=== PATIENT | female | born 2000 | race American Indian/Alaskan Native ===

== ENCOUNTER 2019-08-25 19:00 | Emergency (ER) | payer MEDICAID, OTHER ==
--- NOTE | 2019-08-25 20:41 | Emergency Department Report ---
ED Female HPI - General Chief complaint: Abdominal Pain Stated complaint: /PAIN 6 WKS Time Seen by Provider: 08/25/19 20:00 Source: patient Mode of arrival: Ambulatory Limitations: No Limitations - History of Present Illness Initial comments: This is a 19-year-old -[place]aro[place] female who presents to the emergency room with abdominal pain, vaginal bleeding, nausea or vomiting for 2-3 days. Patient states she is 6 weeks and not followed by an [facility]. Her last menstrual period was 07/08/2019, A0. She reports hematuria and urinary frequency. Denies vaginal discharge, back pain, chest pain, dizziness, or weakness. MD Complaint: vaginal bleeding, pelvic pain Onset/Timin -: days(s) Location: suprapubic Radiation: non-radiating Severity: mild Severity scale (0 -10): 3 Quality: cramping Consistency: constant Improves with: none Worsens with: none Are you Now?: Yes Last Menstrual Period: 07/08/19 EDC: 04/13/20 Associated Symptoms: vaginal bleeding, abdominal pain, nausea/vomiting, hematuria. denies: fever/chills, headaches, loss of appetite, dysuria, rash, seizure, shortness of breath, syncope, weakness - Related Data Sexually active: Yes : 2 Para: 1 A: 0 Previous Rx's Medication Instructions Recorded Last Taken Type Ondansetron [Zofran Odt] 4 mg PO Q8HR PRN #20 tab.rapdis 08/26/19 Unknown Rx cephALEXin [Keflex] 500 mg PO BID #14 capsule 08/26/19 Unknown Rx Allergies Allergy/AdvReac Type Severity Reaction Status Date / Time No Known Allergies Allergy Unverified 08/25/19 19:05 ED Review of Systems ROS: Stated complaint: /PAIN 6 WKS Other details as noted in HPI Constitutional: denies: chills, fever Respiratory: denies: cough, shortness of breath, wheezing Cardiovascular: denies: chest pain, palpitations Gastrointestinal: abdominal pain, nausea, vomiting. denies: diarrhea Genitourinary: frequency, hematuria. denies: urgency, dysuria, discharge Musculoskeletal: denies: back pain, joint swelling, arthralgia Skin: denies: rash, lesions Neurological: denies: headache, weakness, paresthesias Psychiatric: denies: anxiety, depression ED Past Medical Hx - Past Medical History Previous Medical History?: No - Surgical History Past Surgical History?: No - Social History Smoking Status: Never Smoker Substance Use Type: None - Medications Home Medications: Home Medications Medication Instructions Recorded Confirmed Last Taken Type Ondansetron [Zofran Odt] 4 mg PO Q8HR PRN #20 tab.rapdis 08/26/19 Unknown Rx cephALEXin [Keflex] 500 mg PO BID #14 capsule 08/26/19 Unknown Rx ED Physical Exam - General Limitations: No Limitations General appearance: alert, in no apparent distress - Respiratory Respiratory exam: Present: normal lung sounds bilaterally. Absent: respiratory distress - Cardiovascular Cardiovascular Exam: Present: regular rate, normal rhythm. Absent: systolic murmur, diastolic murmur, rubs, gallop - GI/Abdominal GI/Abdominal exam: Present: soft, tenderness (suprapubic), normal bowel sounds. Absent: distended, guarding, rebound, rigid, organomegaly - Back Exam Back exam: Absent: CVA tenderness (R), CVA tenderness (L) - Neurological Exam Neurological exam: Present: alert, oriented X3 - Psychiatric Psychiatric exam: Present: normal affect, normal mood - Skin Skin exam: Present: warm, dry, intact, normal color. Absent: rash ED Course Vital Signs 08/25/19 19:51 Temperature 98.0 F Pulse Rate 72 Respiratory 14 Rate Blood Pressure 116/58 O2 Sat by Pulse 99 Oximetry ED Medical Decision Making - Lab Data Result diagrams: 08/25/19 21:53 Lab Results 08/25/19 08/25/19 08/25/19 Range/Units 21:53 21:53 21:53 WBC 11.4 H (4.5-11.0) K/mm3 RBC 3.54 L (3.65-5.03) M/mm3 Hgb 11.5 (10.1-14.3) gm/dl Hct 31.8 (30.3-42.9) % MCV 90 (79-97) fl MCH 32 (28-32) pg MCHC 36 H (30-34) % RDW 12.9 L (13.2-15.2) % Plt Count 221 (140-440) K/mm3 Lymph % (Auto) 27.4 (13.4-35.0) % Garvin % (Auto) 5.9 (0.0-7.3) % Eos % (Auto) 0.3 (0.0-4.3) % Baso % (Auto) 0.8 (0.0-1.8) % Lymph # 3.1 (1.2-5.4) K/mm3 Garvin # 0.7 (0.0-0.8) K/mm3 Eos # 0.0 (0.0-0.4) K/mm3 Baso # 0.1 (0.0-0.1) K/mm3 Seg Neutrophils % 65.6 (40.0-70.0) % Seg Neutrophils # 7.5 (1.8-7.7) K/mm3 HCG, Qual Positive (Negative) HCG, Quant 72093 H (0-4) mIU/mL Blood Type 08/25/19 Range/Units 21:53 WBC (4.5-11.0) K/mm3 RBC (3.65-5.03) M/mm3 Hgb (10.1-14.3) gm/dl Hct (30.3-42.9) % MCV (79-97) fl MCH (28-32) pg MCHC (30-34) % RDW (13.2-15.2) % Plt Count (140-440) K/mm3 Lymph % (Auto) (13.4-35.0) % Garvin % (Auto) (0.0-7.3) % Eos % (Auto) (0.0-4.3) % Baso % (Auto) (0.0-1.8) % Lymph # (1.2-5.4) K/mm3 Garvin # (0.0-0.8) K/mm3 Eos # (0.0-0.4) K/mm3 Baso # (0.0-0.1) K/mm3 Seg Neutrophils % (40.0-70.0) % Seg Neutrophils # (1.8-7.7) K/mm3 HCG, Qual (Negative) HCG, Quant (0-4) mIU/mL Blood Type O NEGATIVE Lab Results 08/25/19 08/25/19 08/25/19 Range/Units 21:53 21:53 21:53 WBC 11.4 H (4.5-11.0) K/mm3 RBC 3.54 L (3.65-5.03) M/mm3 Hgb 11.5 (10.1-14.3) gm/dl Hct 31.8 (30.3-42.9) % MCV 90 (79-97) fl MCH 32 (28-32) pg MCHC 36 H (30-34) % RDW 12.9 L (13.2-15.2) % Plt Count 221 (140-440) K/mm3 Lymph % (Auto) 27.4 (13.4-35.0) % Garvin % (Auto) 5.9 (0.0-7.3) % Eos % (Auto) 0.3 (0.0-4.3) % Baso % (Auto) 0.8 (0.0-1.8) % Lymph # 3.1 (1.2-5.4) K/mm3 Garvin # 0.7 (0.0-0.8) K/mm3 Eos # 0.0 (0.0-0.4) K/mm3 Baso # 0.1 (0.0-0.1) K/mm3 Seg Neutrophils % 65.6 (40.0-70.0) % Seg Neutrophils # 7.5 (1.8-7.7) K/mm3 HCG, Qual Positive (Negative) HCG, Quant 01293 H (0-4) mIU/mL Urine Color (Yellow) Urine Turbidity (Clear) Urine pH (5.0-7.0) Ur Specific [place] (1.003-1.030) Urine Protein (Negative) mg/dL Urine Glucose (UA) (Negative) mg/dL Urine Ketones (Negative) mg/dL Urine Blood (Negative) Urine Nitrite (Negative) Urine Bilirubin (Negative) Urine Urobilinogen (<2.0) mg/dL Ur Leukocyte Esterase (Negative) Urine WBC (Auto) (0.0-6.0) /HPF Urine RBC (Auto) (0.0-6.0) /HPF U Epithel Cells (Auto) (0-13.0) /HPF Amorphous Crystals Urine Mucus /HPF Blood Type 08/25/19 08/25/19 Range/Units 21:53 Unknown WBC (4.5-11.0) K/mm3 RBC (3.65-5.03) M/mm3 Hgb (10.1-14.3) gm/dl Hct (30.3-42.9) % MCV (79-97) fl MCH (28-32) pg MCHC (30-34) % RDW (13.2-15.2) % Plt Count (140-440) K/mm3 Lymph % (Auto) (13.4-35.0) % Garvin % (Auto) (0.0-7.3) % Eos % (Auto) (0.0-4.3) % Baso % (Auto) (0.0-1.8) % Lymph # (1.2-5.4) K/mm3 Garvin # (0.0-0.8) K/mm3 Eos # (0.0-0.4) K/mm3 Baso # (0.0-0.1) K/mm3 Seg Neutrophils % (40.0-70.0) % Seg Neutrophils # (1.8-7.7) K/mm3 HCG, Qual (Negative) HCG, Quant (0-4) mIU/mL Urine Color Yellow (Yellow) Urine Turbidity Clear (Clear) Urine pH 7.0 (5.0-7.0) Ur Specific [place] 1.013 (1.003-1.030) Urine Protein <15 mg/dl (Negative) mg/dL Urine Glucose (UA) Neg (Negative) mg/dL Urine Ketones Tr (Negative) mg/dL Urine Blood Neg (Negative) Urine Nitrite Neg (Negative) Urine Bilirubin Neg (Negative) Urine Urobilinogen 2.0 (<2.0) mg/dL Ur Leukocyte Esterase Mod (Negative) Urine WBC (Auto) 78.0 H (0.0-6.0) /HPF Urine RBC (Auto) 8.0 (0.0-6.0) /HPF U Epithel Cells (Auto) 1.0 (0-13.0) /HPF Amorphous Crystals Few Urine Mucus Few /HPF Blood Type O NEGATIVE - Radiology Data Radiology results: report reviewed Transabdominal and transvaginal OB pelvic ultrasound INDICATION / CLINICAL INFORMATION: Abdominal pain and bleeding. COMPARISON: None available. FINDINGS: TRANSABDOMINAL: There is an intrauterine gestational sac measuring 6 weeks 6 days. I do not identify a yolk sac or pole. There is no evidence of implantation hemorrhage. The right ovary measures 3.3 x 2.1 x 2.5 cm and the left ovary 2.5 x 1.5 x 2.1 cm. There is normal blood flow to both ovaries on Doppler exam. There is a minimal amount of free fluid in the cul-de-sac. I do not identify an extraovarian mass. TRANSVAGINAL: There is a pole measuring 6 weeks 4 days. There is cardiac activity with a heart rate of 120 bpm. A yolk sac is present. There is no evidence of implantation hemorrhage. The right ovary measures 2.7 x 1.8 x 3.6 cm and contains a 1.5 cm corpus luteal cyst. The left ovary measures 2.7 x 1.2 x 2.4 cm. There is a small amount of free fluid in the cul-de-sac. I do not identify an extraovarian mass. IMPRESSION: 1. Single viable 6 week 4 day intrauterine . 2. 1.5 cm corpus luteal cyst in the right ovary. - Medical Decision Making Patient is stable and was examined by me. No acute signs of distress noted. Labs and an OB ultrasound were obtained urinalysis positive for acute cystitis. All of the labs are unremarkable. 1. Single viable 6 week 4 day intrauterine . 2. 1.5 cm corpus luteal cyst in the right ovary. Start cephalexin 500 mg po bid x 7 days. Patient agrees to the ED plan of care to treat outpatient. No further questions noted. Discharged home stable. Follow up with [facility] in 24-48 hours. Critical care attestation.: If time is entered above; I have spent that time in minutes in the direct care of this critically ill patient, excluding procedure time. ED Disposition Clinical Impression: Abdominal pain affecting , Dysuria Acute cystitis during Qualifiers: Trimester: first trimester Qualified Code(s): O23.11 - Infections of bladder in , first trimester Disposition: - TO HOME OR SELFCARE Is pt being admited?: No Condition: Stable Instructions: Abdominal Pain (ED), Urinary Tract Infection in Women (ED) Prescriptions: cephALEXin [Keflex] 500 mg PO BID #14 capsule Ondansetron [Zofran Odt] 4 mg PO Q8HR PRN #20 tab.rapdis PRN Reason: Nausea And Vomiting Referrals: [Other] - 3-5 Days [facility] [Provider Group] - 3-5 Days [facility] [Provider [facility]] - 3-5 Days Forms: Work/School Release Form(ED) Time of Disposition: 00:24
--- NOTE | 2019-08-25 22:05 | Ultrasound Report ---
Transabdominal and transvaginal OB pelvic ultrasound INDICATION / CLINICAL INFORMATION: Abdominal pain and bleeding. COMPARISON: None available. FINDINGS: TRANSABDOMINAL: There is an intrauterine gestational sac measuring 6 weeks 6 days. I do not identify a yolk sac or pole. There is no evidence of implantation hemorrhage. The right ovary measures 3 .3 x 2.1 x 2.5 cm and the left ovary 2.5 x 1.5 x 2.1 cm. There is normal blood flow to both ovaries o n Doppler exam. There is a minimal amount of free fluid in the cul-de-sac. I do not identify an extra ovarian mass. TRANSVAGINAL: There is a pole measuring 6 weeks 4 days. There is cardiac activity with a heart rate of 120 bpm. A yolk sac is present. There is no evidence of implantation hemorrhage. The ri ght ovary measures 2.7 x 1.8 x 3.6 cm and contains a 1.5 cm corpus luteal cyst. The left ovary measur es 2.7 x 1.2 x 2.4 cm. There is a small amount of free fluid in the cul-de-sac. I do not identify an extraovarian mass. IMPRESSION: 1. Single viable 6 week 4 day intrauterine . 2. 1.5 cm corpus luteal cyst in the right ovary. Signer Name: Seb Orosco MD Signed: 08/25/2019 10:01 PM Workstation Name: [id number]
[2019-08-25 22:07] LABS: Basophils # (Auto) 0.1 K/mm3 (0.0-0.1); Basophils % (Auto) 0.8 % (0.0-1.8); Eosinophils % (Auto) 0.3 % (0.0-4.3); Hematocrit 31.8 % (30.3-42.9); Hemoglobin 11.5 gm/dl (10.1-14.3); Lymphocytes # (Auto) 3.1 K/mm3 (1.2-5.4); Lymphocytes % (Auto) 27.4 % (13.4-35.0); Mean Corpuscular HGB Conc 36 % (30-34); Mean Corpuscular Volume 90 fl (79-97); Monocytes # (Auto) 0.7 K/mm3 (0.0-0.8); Monocytes % (Auto) 5.9 % (0.0-7.3); Platelet Count 221 K/mm3 (140-440); Red Blood Count 3.54 M/mm3 (3.65-5.03); Red Cell Distribution Width 12.9 % (13.2-15.2)
[2019-08-25 23:44] LABS: Amorphous Crystals,Urine Few; Bilirubin,Urine NEG (Negative); Blood,Urine NEG (Negative); Color,Urine Yellow (Yellow); Mucus,Urine FEW /HPF; Protein,Urine <15 mg/dL mg/dL (Negative)
[2019-08-26 00:28] VITALS: BP 100/64
== END 2019-08-26 00:35 | disposition home or self-care (01) ==
LOC: ED 19:00
DX: O23.11 Infections of bladder in pregnancy, first trimester (principal); Z3A.01 Less than 8 weeks gestation of pregnancy; Z79.899 Other long term (current) drug therapy
CPT/HCPCS: 36415; 76801; 76817; 81001; 84702; 84703; 85025; 86900; 86901; 87086; 99284

== ENCOUNTER 2020-01-06 20:57 | Emergency (ER) | payer SELFPAY ==
[2020-01-06] MEDS ORDERED: ONDANSETRON 4 MG/2 ML INJ IV ONE (21:18)
[2020-01-06] MEDS ORDERED: FAMOTIDINE 20 MG/2 ML INJ IV ONE (21:18)
--- NOTE | 2020-01-06 21:20 | Event Note ---
Date: 01/06/20 Medical screening note: 19-year-old female who reports having elective termination of 3 weeks ago, cannot recall the name of the group who performed her procedure, presenting with a report of a few weeks nausea and vomiting, unintentional weight loss. She has lower abdominal pain. There is no lower abdominal tenderness. She reports a 20 to 30 pound unintentional weight loss. She vomited x1 today, after trying to drink soda. No bowel movement x1 week. She is not really eating much of anything as per her history. Give IV fluids, pain medicine, nausea medicine, check basic laboratory studies, EKG, obstetrics ultrasound, and reassess. Vital Signs 01/06/20 21:13 Temperature 97.5 F L Pulse Rate 76 Respiratory 12 Rate Blood Pressure 133/88 Blood Pressure 133/88 [Left] O2 Sat by Pulse 100 Oximetry
[2020-01-06 21:45] LABS: Mean Corpuscular HGB Conc 36 % (30-34); Mean Corpuscular Volume 88 fl (79-97); Platelet Count 250 K/mm3 (140-440); Red Blood Count 4.27 M/mm3 (3.65-5.03); Red Cell Distribution Width 13.9 % (13.2-15.2)
[2020-01-06 21:48] LABS: Hematocrit 37.4 % (30.3-42.9); Hemoglobin 13.5 gm/dl (10.1-14.3)
--- NOTE | 2020-01-06 21:54 | Emergency Department Report ---
ED General Adult HPI - General Chief complaint: Abdominal Pain Stated complaint: ABDOMINAL PAIN Time Seen by Provider: 01/06/20 21:26 Source: EMS Mode of arrival: Stretcher Limitations: No Limitations - History of Present Illness Initial comments: Patient is 19 years old female with no significant past medical history. Patient presented to the ER complaining of abdominal pain, nausea and vomiting for the last 2 weeks. Patient stated that she had an 3 days ago at [facility]. Patient stated that she was given a tablet. Patient stated that she passed the fetus and her bleeding is normal now. Patient stated that she lost approximately 20 pounds in 2 weeks. Patient stated that she is not able to keep anything down. Patient denied any fever or chills. No diarrhea. Patient stated that this is her second in the last 6-month due to medical problem with including severe pain and nausea and vomiting. Patient also reported burning sensation and dysuria when she used the bathroom. Patient stated that she has a life kid 3 years old. When I asked the patient about depression she stated that she is depressed but she denied any suicidal or homicidal ideation. She also denied any auditory or visual hallucination. When I offer her mental health evaluation patient declined and stated that she will follow-up with her primary doctor. Severity scale (0 -10): 8 - Related Data Previous Rx's Medication Instructions Recorded Last Taken Type Ondansetron [Zofran Odt] 4 mg PO Q8HR PRN #20 tab.rapdis 08/26/19 Unknown Rx cephALEXin [Keflex] 500 mg PO BID #14 capsule 08/26/19 Unknown Rx Ondansetron [Zofran Odt] 4 mg PO Q8HR PRN #14 tab.rapdis 01/07/20 Unknown Rx Potassium Chloride [K-Dur] 10 meq PO QDAY #5 tablet 01/07/20 Unknown Rx levoFLOXacin [Levaquin TAB] 500 mg PO QDAY #7 tablet 01/07/20 Unknown Rx traMADoL [Ultram 50 MG tab] 50 mg PO Q4HR PRN #14 tablet 01/07/20 Unknown Rx Allergies Allergy/AdvReac Type Severity Reaction Status Date / Time No Known Allergies Allergy Unverified 08/25/19 19:05 ED Review of Systems ROS: Stated complaint: ABDOMINAL PAIN Other details as noted in HPI Comment: All other systems reviewed and negative Constitutional: denies: chills, fever Respiratory: denies: cough, shortness of breath, SOB with exertion, SOB at rest, wheezing Cardiovascular: denies: chest pain, palpitations, dyspnea on exertion Gastrointestinal: abdominal pain, nausea, vomiting. denies: diarrhea, co nstipation, hematemesis, melena, hematochezia Genitourinary: denies: urgency, dysuria, frequency, hematuria Musculoskeletal: denies: back pain Neurological: denies: headache, weakness, numbness, paresthesias, confusion, abnormal gait ED Past Medical Hx - Past Medical History Previous Medical History?: Yes - Surgical History Past Surgical History?: Yes Additional Surgical History: x 2 - Social History Smoking Status: Former Smoker Substance Use Type: None - Medications Home Medications: Home Medications Medication Instructions Recorded Confirmed Last Taken Type Ondansetron [Zofran Odt] 4 mg PO Q8HR PRN #20 tab.rapdis 08/26/19 Unknown Rx cephALEXin [Keflex] 500 mg PO BID #14 capsule 08/26/19 Unknown Rx Ondansetron [Zofran Odt] 4 mg PO Q8HR PRN #14 tab.rapdis 01/07/20 Unknown Rx Potassium Chloride [K-Dur] 10 meq PO QDAY #5 tablet 01/07/20 Unknown Rx levoFLOXacin [Levaquin TAB] 500 mg PO QDAY #7 tablet 01/07/20 Unknown Rx traMADoL [Ultram 50 MG tab] 50 mg PO Q4HR PRN #14 tablet 01/07/20 Unknown Rx ED Physical Exam - General Limitations: No Limitations General appearance: alert, in no apparent distress - Head Head exam: Present: atraumatic, normocephalic, normal inspection - ENT ENT exam: Present: mucous membranes dry - Neck Neck exam: Present: normal inspection, full ROM. Absent: tenderness, meningismus, lymphadenopathy, thyromegaly - Respiratory Respiratory exam: Present: normal lung sounds bilaterally. Absent: respiratory distress, wheezes, rales, rhonchi, chest wall tenderness - Cardiovascular Cardiovascular Exam: Present: regular rate, normal rhythm, normal heart sounds - GI/Abdominal GI/Abdominal exam: Present: soft, normal bowel sounds. Absent: distended, tenderness, guarding, rebound, rigid, organomegaly, mass, bruit, pulsatile mass, hernia - Extremities Exam Extremities exam: Present: normal inspection, full ROM, normal capillary refill. Absent: pedal edema, calf tenderness - Back Exam Back exam: Present: normal inspection, full ROM, CVA tenderness (R), CVA tenderness (L). Absent: muscle spasm, paraspinal tenderness, vertebral tenderness - Neurological Exam Neurological exam: Present: alert, oriented X3, CN II-XII intact, normal gait, reflexes normal. Absent: motor sensory deficit - Psychiatric Psychiatric exam: Present: depressed. Absent: agitated, anxious, flat affect, manic, homicidal ideation, suicidal ideation - Skin Skin exam: Present: warm, dry, intact ED Course Vital Signs 01/06/20 01/06/20 01/06/20 21:11 21:13 21:15 Temperature 97.5 F L Pulse Rate 71 76 86 Respiratory 12 12 18 Rate Blood Pressure 133/88 133/88 Blood Pressure 133/88 [Left] O2 Sat by Pulse 99 100 99 Oximetry 01/06/20 01/06/20 01/06/20 21:31 21:45 22:00 Temperature Pulse Rate 68 65 58 L Respiratory 10 L 11 L 12 Rate Blood Pressure 133/88 133/88 133/88 Blood Pressure [Left] O2 Sat by Pulse 99 99 Oximetry 01/06/20 01/06/20 01/06/20 22:16 22:30 22:46 Temperature Pulse Rate 67 86 105 H Respiratory 11 L 15 10 L Rate Blood Pressure 109/73 109/73 Blood Pressure [Left] O2 Sat by Pulse 99 100 100 Oximetry 01/06/20 01/06/20 01/06/20 23:00 23:15 23:30 Temperature Pulse Rate 73 66 96 H Respiratory 11 L 11 L 13 Rate Blood Pressure 103/73 103/73 103/73 Blood Pressure [Left] O2 Sat by Pulse 100 100 100 Oximetry 01/06/20 01/07/20 01/07/20 23:46 00:00 00:16 Temperature Pulse Rate 82 66 71 Respiratory 13 15 13 Rate Blood Pressure 103/73 104/58 104/58 Blood Pressure [Left] O2 Sat by Pulse 100 98 Oximetry 01/07/20 01/07/20 01/07/20 00:30 00:46 01:00 Temperature Pulse Rate 77 70 68 Respiratory 13 14 19 Rate Blood Pressure 104/58 104/58 106/48 Blood Pressure [Left] O2 Sat by Pulse 99 99 98 Oximetry 01/07/20 01/07/20 01/07/20 01:16 01:30 01:46 Temperature Pulse Rate 78 67 64 Respiratory 18 14 10 L Rate Blood Pressure 106/48 106/48 106/48 Blood Pressure [Left] O2 Sat by Pulse 98 99 98 Oximetry 01/07/20 01/07/20 01/07/20 03:00 03:16 03:30 Temperature Pulse Rate 63 73 70 Respiratory 14 15 17 Rate Blood Pressure 95/53 95/53 106/48 Blood Pressure [Left] O2 Sat by Pulse 97 99 100 Oximetry 01/07/20 01/07/20 03:46 04:00 Temperature Pulse Rate 88 93 H Respiratory 15 30 H Rate Blood Pressure 106/48 106/48 Blood Pressure [Left] O2 Sat by Pulse 99 100 Oximetry ED Medical Decision Making - Lab Data Result diagrams: 01/06/20 21:28 01/06/20 21:28 - Radiology Data Radiology results: report reviewed - Medical Decision Making Patient is 19 years old female with no significant past medical history. Patient presented to the ER complaining of abdominal pain, nausea and vomiting f or the last 2 weeks. Patient stated that she had an 3 days ago at [facility]. Patient stated that she was given a tablet. Patient stated that she passed the fetus and her bleeding is normal now. Patient stated that she lost approximately 20 pounds in 2 weeks. Patient stated that she is not able to keep anything down. Patient denied any fever or chills. No diarrhea. Patient stated that this is her second in the last 6-month due to medical problem with including severe pain and nausea and vomiting. Patient also reported burning sensation and dysuria when she used the bathroom. Patient stated that she has a life kid 3 years old. When I asked the patient about depression she stated that she is depressed but she denied any suicidal or homicidal ideation. She also denied any auditory or visual hallucination. When I offer her mental health evaluation patient declined and stated that she will follow-up with her primary doctor. Patient received normal saline, morphine, Zofran and Reglan. Patient labs reviewed and showed a potassium of 2.4, corrected with potassium chloride 20 mg IV and 40 mg p.o. Patient stated that she is feeling much better. Patient received Rocephin IV for UTI. Patient advised to follow-up with her OB doctor i n the next 2 to 3 days and to return to the ER if she develop any new symptoms. Critical care attestation.: If time is entered above; I have spent that time in minutes in the direct care of this critically ill patient, excluding procedure time. ED Disposition Clinical Impression: Nausea & vomiting, Hypokalemia, complicated by metabolic disorder Disposition: DC-01 TO HOME OR SELFCARE Is pt being admited?: No Condition: Stable Instructions: Urinary Tract Infection in Women (ED), Hypokalemia (ED), Abdominal Pain (ED) Prescriptions: Potassium Chloride [K-Dur] 10 meq PO QDAY #5 tablet levoFLOXacin [Levaquin TAB] 500 mg PO QDAY #7 tablet traMADoL [Ultram 50 MG tab] 50 mg PO Q4HR PRN #14 tablet PRN Reason: Pain Ondansetron [Zofran Odt] 4 mg PO Q8HR PRN #14 tab.rapdis PRN Reason: Nausea And Vomiting Referrals: PRIMARY CARE, [Primary Care Provider] - 3-5 Days
[2020-01-06] MEDS ORDERED: D5W/0.45% NACL 1,000 ML IV SCH (22:00)
[2020-01-06 22:01] LABS: Alanine Aminotransferase 16 units/L (7-56); Albumin 4.7 g/dL (3.9-5); BUN/Creatinine Ratio 27; Blood Urea Nitrogen 19 mg/dL (7-17); Hemolysis Index 7
[2020-01-06] MEDS ORDERED: SODIUM CHLORIDE 0.9% 1000 ML 1,000 ML ONE (23:14)
[2020-01-06] MEDS: POTASSIUM CHLORIDE 10 MEQ 10 MEQ/100 ML BAG IV SCH (23:14)
[2020-01-06] MEDS ORDERED: MORPHINE 2 MG/1 ML INJ IV ONE (23:18)
[2020-01-06] MEDS ORDERED: SODIUM CHLORIDE 0.9% 1000 ML 1,000 ML IV ONE (23:19)
--- NOTE | 2020-01-07 | Ultrasound Report ---
ULTRASOUND OBSTETRIC INDICATION / CLINICAL INFORMATION: hx of etop, n/v lower abd poain. Clinical Gestational Age (GA): Unknown TECHNIQUE: Transabdominal. COMPARISON: None available. FINDINGS: The uterus is slightly enlarged measuring 9.1 x 5.5 x 7.2 cm. Endometrial complex is thickened measur ing 16 mm. There is no gestational sac identified. ADNEXA: Both ovaries are well-visualized and appear unremarkable. No free fluid or adnexal mass. FREE FLUID: None. ADDITIONAL FINDINGS: None. IMPRESSION: 1. No evidence for IUP at this time. Please correlate clinically with hCG levels and clinical present ation. Signer Name: Sherry Avendaño MD Signed: 01/06/2020 11:55 PM Workstation Name: [id number]
[2020-01-07] MEDS: POTASSIUM CHLORIDE 10 MEQ 10 MEQ/100 ML BAG IV SCH (00:17)
[2020-01-07] MEDS ORDERED: POTASSIUM CHLORIDE ER 20 MEQ TAB PO ONE (00:25)
[2020-01-07] MEDS ORDERED: cefTRIAXone/NS 2 GM/100 ML 2 GM/100 ML BAG IV ONE (01:51)
[2020-01-07] MEDS ORDERED: METOCLOPRAMIDE 10 MG/2 ML INJ IV ONE (01:54)
[2020-01-07 03:45] LABS: Amphetamine Screen,Urine PRESUMPTIVE NEGATIVE; Benzodiazepines Screen,Urine PRESUMPTIVE NEGATIVE; Cocaine Screen,Urine PRESUMPTIVE NEGATIVE; Methadone Screen,Urine PRESUMPTIVE NEGATIVE
[2020-01-07 03:48] LABS: Bilirubin,Urine NEG (Negative); Blood,Urine LG (Negative); Color,Urine Red (Yellow); Mucus,Urine 2+ /HPF
[2020-01-07 03:56] LABS: Cannabinoid Screen,Urine PRESUMPTIVE POSITIVE; Opiate Screen,Urine PRESUMPTIVE POSITIVE
[2020-01-07 04:01] LABS: RBC,Urine > 182.0 /HPF (0.0-6.0)
[2020-01-07 04:31] VITALS: BP 106/48
== END 2020-01-07 04:31 | disposition home or self-care (01) ==
LOC: ED 20:57
DX: E87.6 Hypokalemia (principal); O03.83 Metabolic disorder following complete or unspecified spontaneous abortion; E88.89 Other specified metabolic disorders; Z87.891 Personal history of nicotine dependence; Z79.899 Other long term (current) drug therapy
CPT/HCPCS: 36415; 76801; 80053; 80307; 81001; 82550; 83690; 83735; 84443; 84702; 85027; 86850; 86870; 86900; 86901; 93005; 93010; 96365; 96366; 96367; 96368; 96375; 99285; J0696; J2270; J2405; J2765; J3480; J7030

== ENCOUNTER 2021-03-11 09:29 | Emergency (ER) | payer SELFPAY ==
[2021-03-11 09:44] VITALS: BP 123/87
--- NOTE | 2021-03-11 11:09 | Event Note ---
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 Patient states her car broke down and she has been unable to get to the grocery store. As a result, she has not been eating or drinking properly for the last 2 weeks. No known sick contacts. She is currently on her menstrual cycle. Tachycardic in triage. General: Awake, appropriately interactive, no acute distress. Neck: Supple. Full range of motion intact. Cardiovascular: Normal peripheral perfusion. Pulmonary: No respiratory distress. Patient is speaking normally without use of accessory muscles. Skin: No apparent rashes or lesions. Neurological: No facial asymmetry. Speech is clear. Follows commands. Patient is alert and oriented. Musculoskeletal: Moves all four extremities spontaneously with normal range of motion. Psych: Cooperative. Appropriate mood and affect. I have greeted and performed a focused rapid initial assessment of this patient. A comprehensive ED assessment and evaluation of the patient, analysis of all test results, and completion of the medical decision-making process will be conducted by additional ED providers. This initial assessment/diagnostic orders/clinical plan/treatment(s) is/are subject to change based on patients health status, clinical progression and re-assessment. Further treatment and workup at subsequent clinical provider's discretion. Patient/guardian urged not to elope from the ED as their condition may be serious if not clinically assessed and managed.
[2021-03-11 12:34] LABS: Alanine Aminotransferase 6 units/L (7-56); Albumin 4.4 g/dL (3.9-5); Basophils % (Auto) 0.5 % (0.0-1.8); Blood Urea Nitrogen 9 mg/dL (7-17); Calcium 9.2 mg/dL (8.4-10.2); Eosinophils % (Auto) 0.1 % (0.0-4.3); Hematocrit 35.3 % (30.3-42.9); Hemoglobin 12.7 gm/dl (10.1-14.3); Hemolysis Index 3; Lymphocytes # (Auto) 1.5 K/mm3 (1.2-5.4); Lymphocytes % (Auto) 20.5 % (13.4-35.0); Mean Corpuscular HGB Conc 36 % (30-34); Mean Corpuscular Volume 89 fl (79-97); Monocytes # (Auto) 0.3 K/mm3 (0.0-0.8); Monocytes % (Auto) 4.5 % (0.0-7.3); Platelet Count 287 K/mm3 (140-440); Red Blood Count 3.96 M/mm3 (3.65-5.03); Red Cell Distribution Width 16.5 % (13.2-15.2)
[2021-03-11 13:20] LABS: BUN/Creatinine Ratio 18
[2021-03-11 15:59] LABS: Bilirubin,Urine NEG (Negative); Blood,Urine NEG (Negative); Color,Urine Yellow (Yellow); Mucus,Urine 3+ /HPF; Protein,Urine <15 mg/dL mg/dL (Negative); Urobilinogen,Urine < 2.0 mg/dL (<2.0)
[2021-03-11 16:07] LABS: Amphetamine Screen,Urine Negative; Benzodiazepines Screen,Urine Negative; Cannabinoid Screen,Urine Negative; Cocaine Screen,Urine Negative; Methadone Screen,Urine Negative; Opiate Screen,Urine Negative
--- NOTE | 2021-03-11 20:06 | Emergency Department Report ---
ED General Adult HPI - General Chief complaint: Nausea/Vomiting/Diarrhea Stated complaint: MALI, HAVE NOT BEEN ABLE TO EAT FOR 2 WEEKS Time Seen by Provider: 03/11/21 18:36 Source: patient Mode of arrival: Ambulatory Limitations: No Limitations - History of Present Illness Initial comments: Patient keeps coming and going from the emergency department, she has left multiple times and had been pulled out of the system, she had been called multiple times to be evaluated Patient is a 20-year-old female presents emergency room with complaints of shortness of breath. She states that she is also been having diarrhea. She states that she was having car trouble and for the last 2 weeks not able to go to the grocery store so she was just eating whatever she had in her house. She denies any nausea, vomiting, fever, cough, chest pain, leg swelling, pleuritic chest pain, hemoptysis. Past medical history of hypokalemia and long QT. No allergies to medications. She denies tobacco, drug use, alcohol use. She denies any recent travel, recent surgery, hormone use, history of DVT/PE, family history of DVT/PE, family history of cardiac history. - Related Data Previous Rx's Medication Instructions Recorded Last Taken Type Ondansetron [Zofran Odt] 4 mg PO Q8HR PRN #20 tab.rapdis 08/26/19 Unknown Rx cephALEXin [Keflex] 500 mg PO BID #14 capsule 08/26/19 Unknown Rx Ondansetron [Zofran Odt] 4 mg PO Q8HR PRN #14 tab.rapdis 01/07/20 Unknown Rx Potassium Chloride [K-Dur] 10 meq PO QDAY #5 tablet 01/07/20 Unknown Rx levoFLOXacin [Levaquin TAB] 500 mg PO QDAY #7 tablet 01/07/20 Unknown Rx traMADoL [Ultram 50 MG tab] 50 mg PO Q4HR PRN #14 tablet 01/07/20 Unknown Rx Iron Fum,Ps/Folic/Bcomp,C No.9 1 each PO DAILY 30 Days #30 capsule 04/21/20 Unknown Rx [Integra Plus Capsule] Allergies Allergy/AdvReac Type Severity Reaction Status Date / Time No Known Allergies Allergy Verified 03/11/21 09:44 ED Review of Systems ROS: Stated complaint: MALI, HAVE NOT BEEN ABLE TO EAT FOR 2 WEEKS Other details as noted in HPI Comment: All other systems reviewed and negative ED Past Medical Hx - Past Medical History Additional medical history: Long QT - Surgical History Additional Surgical History: x 3 - Social History Smoking Status: Never Smoker Substance Use Type: None - Medications Home Medications: Home Medications Medication Instructions Recorded Confirmed Last Taken Type Ondansetron [Zofran Odt] 4 mg PO Q8HR PRN #20 tab.rapdis 08/26/19 Unknown Rx cephALEXin [Keflex] 500 mg PO BID #14 capsule 08/26/19 Unknown Rx Ondansetron [Zofran Odt] 4 mg PO Q8HR PRN #14 tab.rapdis 01/07/20 Unknown Rx Potassium Chloride [K-Dur] 10 meq PO QDAY #5 tablet 01/07/20 Unknown Rx levoFLOXacin [Levaquin TAB] 500 mg PO QDAY #7 tablet 01/07/20 Unknown Rx traMADoL [Ultram 50 MG tab] 50 mg PO Q4HR PRN #14 tablet 01/07/20 Unknown Rx Iron Fum,Ps/Folic/Bcomp,C No.9 1 each PO DAILY 30 Days #30 capsule 04/21/20 Unknown Rx [Integra Plus Capsule] ED Physical Exam - General Limitations: No Limitations General appearance: alert, in no apparent distress - Head Head exam: Present: atraumatic, normocephalic - Eye Eye exam: Present: normal appearance - ENT ENT exam: Present: mucous membranes moist - Respiratory Respiratory exam: Present: normal lung sounds bilaterally. Absent: respiratory distress, wheezes, rales, rhonchi, stridor, chest wall tenderness, accessory muscle use, decreased breath sounds, prolonged expiratory - Cardiovascular Cardiovascular Exam: Present: regular rate, normal rhythm, normal heart sounds. Absent: systolic murmur, diastolic murmur, rubs, gallop - Neurological Exam Neurological exam: Present: alert, oriented X3 - Psychiatric Psychiatric exam: Present: normal affect, normal mood - Skin Skin exam: Present: warm, dry, intact ED Course Vital Signs 03/11/21 03/11/21 09:42 18:37 Temperature 98.6 F Pulse Rate 125 H 74 Respiratory 18 18 Rate Blood Pressure 123/87 O2 Sat by Pulse 100 100 Oximetry ED Medical Decision Making - Lab Data Result diagrams: 03/11/21 11:46 03/11/21 11:46 Lab Results 03/11/21 03/11/21 03/11/21 Range/Units 11:46 11:46 11:46 WBC 7.5 (4.5-11.0) K/mm3 RBC 3.96 (3.65-5.03) M/mm3 Hgb 12.7 (10.1-14.3) gm/dl Hct 35.3 (30.3-42.9) % MCV 89 (79-97) fl MCH 32 (28-32) pg MCHC 36 H (30-34) % RDW 16.5 H (13.2-15.2) % Plt Count 287 (140-440) K/mm3 Lymph % (Auto) 20.5 (13.4-35.0) % [facility] % (Auto) 4.5 (0.0-7.3) % Eos % (Auto) 0.1 (0.0-4.3) % Baso % (Auto) 0.5 (0.0-1.8) % Lymph # (Auto) 1.5 (1.2-5.4) K/mm3 [facility] # (Auto) 0.3 (0.0-0.8) K/mm3 Eos # (Auto) 0.0 (0.0-0.4) K/mm3 Baso # (Auto) 0.0 (0.0-0.1) K/mm3 Seg Neutrophils % 74.4 H (40.0-70.0) % Seg Neutrophils # 5.6 (1.8-7.7) K/mm3 Sodium 140 (137-145) mmol/L Potassium 4.0 (3.6-5.0) mmol/L Chloride 105.2 (98-107) mmol/L Carbon Dioxide 26 (22-30) mmol/L Anion Gap 13 mmol/L BUN 9 (7-17) mg/dL Creatinine 0.5 L (0.6-1.2) mg/dL Estimated GFR > 60 ml/min BUN/Creatinine Ratio 18 % Glucose 85 (65-100) mg/dL Calcium 9.2 (8.4-10.2) mg/dL Magnesium 1.90 (1.7-2.3) mg/dL Total Bilirubin 0.30 (0.1-1.2) mg/dL AST 14 (5-40) units/L ALT 6 L (7-56) units/L Alkaline Phosphatase 53 (35-129) units/L Troponin T < 0.010 (0.00-0.029) ng/mL Total Protein 8.2 (6.3-8.2) g/dL Albumin 4.4 (3.9-5) g/dL Albumin/Globulin Ratio 1.2 % TSH 0.798 (0.270-4.200) mlU/mL HCG, Qual (Negative) Urine Color (Yellow) Urine Turbidity (Clear) Urine pH (5.0-7.0) Ur Specific [place] (1.003-1.030) Urine Protein (Negative) mg/dL Urine Glucose (UA) (Negative) mg/dL Urine Ketones (Negative) mg/dL Urine Blood (Negative) Urine Nitrite (Negative) Urine Bilirubin (Negative) Urine Urobilinogen (<2.0) mg/dL Ur Leukocyte Esterase (Negative) Urine WBC (Auto) (0.0-6.0) /HPF Urine RBC (Auto) (0.0-6.0) /HPF U Epithel Cells (Auto) (0-13.0) /HPF Urine Mucus /HPF Urine Opiates Screen Urine Methadone Screen Ur Barbiturates Screen Ur Phencyclidine Scrn Ur Amphetamines Screen U Benzodiazepines Scrn Urine Cocaine Screen U Marijuana (THC) Screen Drugs of Abuse Note 03/11/21 03/11/21 03/11/21 Range/Units 11:46 14:20 15:20 WBC (4.5-11.0) K/mm3 RBC (3.65-5.03) M/mm3 Hgb (10.1-14.3) gm/dl Hct (30.3-42.9) % MCV (79-97) fl MCH (28-32) pg MCHC (30-34) % RDW (13.2-15.2) % Plt Count (140-440) K/mm3 Lymph % (Auto) (13.4-35.0) % [facility] % (Auto) (0.0-7.3) % Eos % (Auto) (0.0-4.3) % Baso % (Auto) (0.0-1.8) % Lymph # (Auto) (1.2-5.4) K/mm3 [facility] # (Auto) (0.0-0.8) K/mm3 Eos # (Auto) (0.0-0.4) K/mm3 Baso # (Auto) (0.0-0.1) K/mm3 Seg Neutrophils % (40.0-70.0) % Seg Neutrophils # (1.8-7.7) K/mm3 Sodium (137-145) mmol/L Potassium (3.6-5.0) mmol/L Chloride (98-107) mmol/L Carbon Dioxide (22-30) mmol/L Anion Gap mmol/L BUN (7-17) mg/dL Creatinine (0.6-1.2) mg/dL Estimated GFR ml/min BUN/Creatinine Ratio % Glucose (65-100) mg/dL Calcium (8.4-10.2) mg/dL Magnesium (1.7-2.3) mg/dL Total Bilirubin (0.1-1.2) mg/dL AST (5-40) units/L ALT (7-56) units/L Alkaline Phosphatase (35-129) units/L Troponin T < 0.010 (0.00-0.029) ng/mL Total Protein (6.3-8.2) g/dL Albumin (3.9-5) g/dL Albumin/Globulin Ratio % TSH (0.270-4.200) mlU/mL HCG, Qual Negative (Negative) Urine Color Yellow (Yellow) Urine Turbidity Clear (Clear) Urine pH 5.0 (5.0-7.0) Ur Specific [place] 1.025 (1.003-1.030) Urine Protein <15 mg/dl (Negative) mg/dL Urine Glucose (UA) Neg (Negative) mg/dL Urine Ketones 20 (Negative) mg/dL Urine Blood Neg (Negative) Urine Nitrite Neg (Negative) Urine Bilirubin Neg (Negative) Urine Urobilinogen < 2.0 (<2.0) mg/dL Ur Leukocyte Esterase Neg (Negative) Urine WBC (Auto) 1.0 (0.0-6.0) /HPF Urine RBC (Auto) 1.0 (0.0-6.0) /HPF U Epithel Cells (Auto) 4.0 (0-13.0) /HPF Urine Mucus 3+ /HPF Urine Opiates Screen Urine Methadone Screen Ur Barbiturates Screen Ur Phencyclidine Scrn Ur Amphetamines Screen U Benzodiazepines Scrn Urine Cocaine Screen U Marijuana (THC) Screen Drugs of Abuse Note 03/11/21 Range/Units 15:20 WBC (4.5-11.0) K/mm3 RBC (3.65-5.03) M/mm3 Hgb (10.1-14.3) gm/dl Hct (30.3-42.9) % MCV (79-97) fl MCH (28-32) pg MCHC (30-34) % RDW (13.2-15.2) % Plt Count (140-440) K/mm3 Lymph % (Auto) (13.4-35.0) % [facility] % (Auto) (0.0-7.3) % Eos % (Auto) (0.0-4.3) % Baso % (Auto) (0.0-1.8) % Lymph # (Auto) (1.2-5.4) K/mm3 [facility] # (Auto) (0.0-0.8) K/mm3 Eos # (Auto) (0.0-0.4) K/mm3 Baso # (Auto) (0.0-0.1) K/mm3 Seg Neutrophils % (40.0-70.0) % Seg Neutrophils # (1.8-7.7) K/mm3 Sodium (137-145) mmol/L Potassium (3.6-5.0) mmol/L Chloride (98-107) mmol/L Carbon Dioxide (22-30) mmol/L Anion Gap mmol/L BUN (7-17) mg/dL Creatinine (0.6-1.2) mg/dL Estimated GFR ml/min BUN/Creatinine Ratio % Glucose (65-100) mg/dL Calcium (8.4-10.2) mg/dL Magnesium (1.7-2.3) mg/dL Total Bilirubin (0.1-1.2) mg/dL AST (5-40) units/L ALT (7-56) units/L Alkaline Phosphatase (35-129) units/L Troponin T (0.00-0.029) ng/mL Total Protein (6.3-8.2) g/dL Albumin (3.9-5) g/dL Albumin/Globulin Ratio % TSH (0.270-4.200) mlU/mL HCG, Qual (Negative) Urine Color (Yellow) Urine Turbidity (Clear) Urine pH (5.0-7.0) Ur Specific [place] (1.003-1.030) Urine Protein (Negative) mg/dL Urine Glucose (UA) (Negative) mg/dL Urine Ketones (Negative) mg/dL Urine Blood (Negative) Urine Nitrite (Negative) Urine Bilirubin (Negative) Urine Urobilinogen (<2.0) mg/dL Ur Leukocyte Esterase (Negative) Urine WBC (Auto) (0.0-6.0) /HPF Urine RBC (Auto) (0.0-6.0) /HPF U Epithel Cells (Auto) (0-13.0) /HPF Urine Mucus /HPF Urine Opiates Screen Negative Urine Methadone Screen Negative Ur Barbiturates Screen Negative Ur Phencyclidine Scrn Negative Ur Amphetamines Screen Negative U Benzodiazepines Scrn Negative Urine Cocaine Screen Negative U Marijuana (THC) Screen Negative Drugs of Abuse Note Disclamer Vital Signs 03/11/21 03/11/21 09:42 18:37 Temperature 98.6 F Pulse Rate 125 H 74 Respiratory 18 18 Rate Blood Pressure 123/87 O2 Sat by Pulse 100 100 Oximetry - EKG Data EKG shows normal: sinus rhythm, axis, intervals, QRS complexes Rate: bradycardia (58 bpm) - EKG Data 03/12/21 02:13 non specific T wave inversion in v1, v2, v3 PACs no STEMI - Medical Decision Making Patient keeps coming and going from the emergency department, she has left multiple times and had been pulled out of the system, she had been called multiple times to be evaluated Patient is a 20-year-old female presents emergency room with complaints of shortness of breath. She states that she is also been having diarrhea. She states that she was having car trouble and for the last 2 weeks not able to go to the grocery store so she was just eating whatever she had in her house. She denies any nausea, vomiting, fever, cough, chest pain, leg swelling, pleuritic chest pain, hemoptysis. Past medical history of hypokalemia and long QT. No allergies to medications. She denies tobacco, drug use, alcohol use. She den ies any recent travel, recent surgery, hormone use, history of DVT/PE, family history of DVT/PE, family history of cardiac history. Initial triage vitals with tachycardia which improved upon repeat without any intervention. Normally on physical examination is documented. Labs are normal. Troponin is negative x2. UA is within normal limits. UDS is negative. EKG with sinus bradycardia, PAC, nonspecific T wave inversion in V1, V2, V3, no STEMI. Advised patient that we will need to do a chest x-ray. According to patient's chart x-ray attempted to take patient to chest x-ray a long time ago but she refused. Patient states that she is now willing to do an x-ray. X-ray went to evaluate patient in the room and it appears she has eloped again. Patient is alert and oriented x4 and has no distracting injury. She has eloped from the emergency department prior to a complete medical examination. Critical care attestation.: If time is entered above; I have spent that time in minutes in the direct care of this critically ill patient, excluding procedure time. ED Disposition Clinical Impression: SOB (shortness of breath) Disposition: Z-07 ELOPED Is pt being admited?: No Does the pt Need Aspirin: No Condition: Undetermined Referrals: PRIMARY CARE, [Primary Care Provider] - 3-5 Days
--- NOTE | 2021-03-13 11:47 | Electrocardiograph Report ---
[facility] Test Date: 2021-03-11 Test Time: 11:29:22 Pat Name: Afia SIMPSON Department: Room: Gender: F Marketing Producer: ARMINDA : 2000 Requested By: DEBORAH ANN Order Number: [id number] Reading MD: Jose Haywood Measurements Intervals [place] Rate: 58 P: 42 CA: 146 QRS: 86 QRSD: 90 T: 77 QT: 424 QTc: 402 Interpretive Statements Sinus bradycardia Atrial premature complexes Nonspecific T abnrm, anterolateral leads No previous ECG available for comparison Electronically Signed On 03-13-2021 11:47:32 EDT by Jose Haywood
== END 2021-03-11 19:30 | disposition left against medical advice (07) ==
LOC: ED 09:29
DX: R06.02 Shortness of breath (principal); Z79.899 Other long term (current) drug therapy; Z98.890 Other specified postprocedural states
CPT/HCPCS: 36415; 80053; 80307; 81001; 83735; 84443; 84484; 84703; 85025; 93005